=== PATIENT | male | born 1980 ===

== ENCOUNTER 2023-01-08 08:51 | Outpatient (AMB) | payer OTHER, MEDICAID, SELFPAY ==
[2023-01-08 08:54] VITALS: BP 140/90; PULSE 83; O2SAT 97; BMI 34.6
--- NOTE | 2023-01-08 08:54 | A.OFFPC_ITS ---
Vital Signs 01/08/23 08:54 Height 6 ft 1 in Weight 262 lb BMI 34.6 BP 140/90 H Blood Pressure Location Lt brachial Position Sitting Pulse 83 Pulse Source Pulse Oximeter Pulse Oximetry (%) 97 Oxygen Delivery Method Room Air Intake Visit Reasons: New patient-back issues/hip replacements Allergies No Known Allergies [No Known Allergies*] Allergy (Verified 01/08/23 08:54) Tobacco use date assessed: 01/08/23 Dental Screening Dental Screen Date: 01/08/23 Did you have a dental visit in the last 12 months?: Yes Did you have a dental problem in the last 6 months where you did not have access to dental care?: No Was dental information given to patient?: Patient has dentist HPI HPI Comments History of Present Illness Details 42-year-old male new patient presents to day to [facility] care. Past history significant for bilateral hip osteoarthritis, status post hip replacements, lumbar spine arthritis, anxiety, depression and PTSD. Patient reports has had issues with PTSD and night terrors due to recent incarceration. Patient on trazodone 150 mg nightly for night terrors. Patient reports on escitalopram 20 mg daily for anxiety and depression. Not currently followed by Psychiatry. Refills sent on escitalopram and trazodone. Patient reports ongoing lumbar back pain related to lumbar spine arthritis for years. Patient requesting opiate pain medication, patient min aware will send a referral to Pain Management Clinic for further evaluation and treatment of chronic pain. Patient agreeable. Patient also reports bilateral ingrown hairs on neck, appears patient has folliculitis will send cephalexin for this. [facility] Surgical History (Updated 01/08/23 @ 09:12 by KATERINE Nowak) Hx of bilateral hip replacements Family History (Updated 01/08/23 @ 09:15 by KATERINE Nowak) Mother No problems noted. Father No problems noted. Social History (Updated 01/08/23 @ 09:16 by KATERINE Nowak) Household Members: Spouse Housing: House Alcohol intake: never Patient Tobacco Use Status: Current everyday Tobacco user Tobacco use type: Cigarette Cigarette Packs Per Day: 1 Current occupational status: retired and disabled Cognitive needs: No Hearing needs: No Vision needs: No Questionnaire PHQ-9 Over the last 2 weeks, how often have you been bothered by any of the following problems? 1. Little interest or pleasure in doing things: several days 2. Feeling down, depressed, or hopeless: several days 3. Trouble falling or staying asleep, or sleeping too much: several days 4. Feeling tired or having little energy: several days 5. Poor appetite or overeating: several days 6. Feeling bad about yourself - or that you are a failure or have let yourself or your family down: not at all 7. Trouble concentrating on things, such as reading the newspaper or watching television: several days 8. Moving or speaking so slowly that other people could have noticed. Or the opposite - being so fidgety or restless that you have been moving around a lot more than usual: several days 9. Thoughts that you would be better off or of hurting yourself in some way: not at all Total score: 7 Depression Screening Interpretation: Positive Depression Screening Done: Yes 84857 - PHQ-9 Billing: Yes Source: Developed by Drs. Vito Jerome, Mirtha Andrade, Donavan Raines and colleagues, with an educational roverto from [employer]. Thrive Questionnaire Date Thrive assessed: 01/08/23 I am a: Patient What is your living situation today?: I have a steady place to live Within the past 12 months, did the food you bought not last and you didn't have the money to get more?: Never true Within the past 12 months, did you worry whether your food would run out before you got money to buy more?: Never true Do you have trouble paying for medicines?: No Do you have trouble getting transportation to medical appointments?: No Do you have trouble paying your heating and electricity bill?: No Do you have trouble taking care of your child, family member or friend?: No Do you have trouble with day-to-day activities such as bathing, preparing meals, shopping, managing finances, etc.?: No Are you currently unemployed and looking for a job?: No Are you interested in more education?: No Please select the resources that you would like help with: None AUDIT C Alcohol Use Questionnaire (AUDIT-C) 1. How often do you have a drink containing alcohol?: Never Total Score: 0 JOSE JUAN-7 AMB Questionnaire JOSE JUAN-7 Date JOSE JUAN - 7 assessed: 01/08/23 Feeling nervous, anxious, or on edge: 1 = Several days Not being able to stop or control worryin = Several days Worrying too much about different things: 1 = Several days Trouble relaxin = Several days Being so restless that it is hard to sit still: 1 = Several days Becoming easily annoyed or irritable: 1 = Several days Feeling afraid as if something awful might happen: 1 = Several days Total JOSE JUAN-7 score (0-4 normal; 5-9 mild; 10-14 moderate; 15-21 severe): 7 Source: Developed by Drs. Vito Jerome, Mirtha Andrade, Donavan Raines and colleagues, with an educational roverto from [employer]. JOSE JUAN-7 Assessment Billing JOSE JUAN-7 Assessment Tool: JOSE JUAN-7 Assessment 24629 Review of Systems Const Denies chills, Denies fatigue, Denies fever(s) and Denies poor appetite Eyes Denies no additional complaints ENT Reports Normal hearing present Card Denies chest pain, Denies syncope, Denies rapid heart rate and Denies dyspnea Resp Denies cough and Denies dyspnea GI Denies change in stool character, Denies constipation, Denies diarrhea, Denies nausea and Denies vomiting Denies dysuria, Denies urinary frequency and Denies urinary urgency Neuro Reports Normal hearing present, Denies confusion and Denies syncope Psych Denies confusion Endo Denies fatigue Physical exam (Primary Care) Vital Signs: Last Vital Signs Pulse 83 01/08/23 08:54 BP 140/90 H 01/08/23 08:54 Pulse Ox 97 01/08/23 08:54 Oxygen Delivery Method Room Air 01/08/23 08:54 BMI result Body Mass Index 34.6 Tobacco/Smoking Status: Tobacco use Status Tobacco use date assessed 01/08/23 01/08/23 09:01 Patient Tobacco Use Status Current everyday Tobacco 01/08/23 09:16 Tobacco use type Cigarette 01/08/23 09:16 PHQ-9: PHQ-9 Score PHQ-9: Total score 7 01/08/23 09:22 Depression Screening Interpretation: Positive Thrive Assessment: Date of Thrive Assessment Date Thrive assessed 01/08/23 01/08/23 09:01 Const General: No confusion Orientation/consciousness: No confusion HENMT Head: Yes normocephalic and Yes atraumatic Eyes Conjunctivae: conjunctivae normal Chest Chest palpation & inspection: normal inspection of the chest Resp Effort & Inspection: normal respiratory effort Auscultation: clear to auscultation bilaterally, no crackles, no rhonchi and no wheezes Cardio Rate: regular rate Rhythm: regular rhythm Heart sounds: S1 normal heart sound present and S2 normal heart sound present GI Inspection: Yes normal to inspection Skin Other: multiple inflammed pustules to bilateral neck Neuro General: No confusion Cranial nerves: Yes Normal hearing present Extrem General: No edema Assessment and Plan Assessment & Plan (1) Arthritis, lumbar spine: Comment: chronic 2018 Code(s): M47.816 - Spondylosis without myelopathy or radiculopathy, lumbar region Plan: Referral entered to Pain Management for further evaluation and treatment. (2) Folliculitis: Code(s): L73.9 - Follicular disorder, unspecified Plan: Cephalexin sent to patient's pharmacy. Patient advised to discard old razor. (3) Anxiety and depression: Code(s): F41.9 - Anxiety disorder, unspecified; F32.A - Depression, unspecified Plan: Continue on escitalopram 20 mg daily. (4) PTSD (post-traumatic stress disorder): Code(s): F43.10 - Post-traumatic stress disorder, unspecified Plan: Continue on trazodone 150 mg nightly for history of PTSD and night terrors. (5) Smoker: Code(s): F17.200 - Nicotine dependence, unspecified, uncomplicated Plan: Strongly advised to stop. Plan Follow-up in 1 month for physical exam Orders: Orders Complete Blood Count Auto Diff Today Z13.0 - Encounter for screening for diseases of the blood and blood-forming organs and certain disorders involving the immune mechanism Lipid Panel Today Z13.220 - Encounter for screening for lipoid disorders TSH reflex Free T4 Today Z13.29 - Encounter for screening for other suspected endocrine disorder Comprehensive [place]. Panel Fast Today F32.A - Depression, unspecified, F41.9 - Anxiety disorder, unspecified Referrals Pain Management Referral M47.816 - Spondylosis without myelopathy or radiculopathy, lumbar region Medications: New cephalexin 500 mg PO BID 14 caps 0RF L73.9 - Follicular disorder, unspecified escitalopram oxalate 20 mg PO DAILY 30 tabs 3RF F32.A - Depression, unspecified, F41.9 - Anxiety disorder, unspecified trazodone 150 mg PO DAILY 30 tabs 0RF F43.10 - Post-traumatic stress disorder, unspecified Coding Level of Care Code New Pt Level 4 (31849) Diagnoses Arthritis, lumbar spine M47.816 Folliculitis L73.9 Anxiety and depression F41.9; F32.A PTSD (post-traumatic stress disorder) F43.10 Smoker F17.200 Additional Codes JOSE JUAN-7 Assessment Billing - JOSE JUAN-7 Assessment Tool: JOSE JUAN-7 Assessment [id number] ([id number])
== END 2023-01-08 09:32 | disposition home or self-care (01) ==
PROVIDERS: PCP Nurse Practitioner Family; Visit Provider Nurse Practitioner Family
DX: M47.816 Spondylosis without myelopathy or radiculopathy, lumbar region (principal); L73.9 Follicular disorder, unspecified; F41.9 Anxiety disorder, unspecified; F32.A Depression, unspecified; F43.10 Post-traumatic stress disorder, unspecified; F17.210 Nicotine dependence, cigarettes, uncomplicated
CPT/HCPCS: 96127; 99204

== ENCOUNTER 2023-01-23 13:29 | Outpatient (AMB) | payer OTHER, SELFPAY ==
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
[2023-01-23 13:36] VITALS: BP 136/83; PULSE 92; O2SAT 96; BMI 33.6
== END 2023-01-23 14:14 | disposition home or self-care (01) ==
PROVIDERS: PCP Nurse Practitioner Family; Visit Provider Nurse Practitioner Family
DX: M54.51 Vertebrogenic low back pain (principal); M51.36 Other intervertebral disc degeneration, lumbar region; M47.816 Spondylosis without myelopathy or radiculopathy, lumbar region; M54.16 Radiculopathy, lumbar region; M62.838 Other muscle spasm; F11.20 Opioid dependence, uncomplicated
CPT/HCPCS: 99204

== ENCOUNTER 2023-01-23 13:29 | Outpatient (REF) | payer OTHER, SELFPAY ==
--- NOTE | ~2023-01-23 | XR_ITS ---
EXAMINATION: XR LUMBOSACRAL SPINE WITH OBLIQUES CLINICAL INFORMATION: Intervertebral disc degeneration. COMPARISON: MR lumbar spine 01/11/2021. TECHNIQUE: 8 views of the lumbar spine inclusive of flexion, extension and bilateral oblique views. FINDINGS: Bilateral total hip prostheses, incompletely imaged. Facet arthritis in the lower lumbar spine. Moderate loss of disc space height at L3-L4. Mild loss of disc space height at L4-L5 and L2-L3. Schmorl's nodes at L2-L3, L3-L4 and L4-L5. Degenerative changes with sclerosis in the bilateral sacroiliac joints. Alignment preserved on flexion and extension views. XR/XR lumbar spine 6V w bending IMPRESSION: Multilevel loss of disc space height at L2-L3 through L4-L5 levels, most notable at L3-L4. Schmorl's nodes.
== END 2023-01-23 13:30 | disposition home or self-care (01) ==
LOC: HO.XRAY 13:29
PROVIDERS: PCP Nurse Practitioner Family; Visit Provider Nurse Practitioner Family
DX: M51.36 Other intervertebral disc degeneration, lumbar region (principal); M54.51 Vertebrogenic low back pain; M47.816 Spondylosis without myelopathy or radiculopathy, lumbar region
CPT/HCPCS: 72114; 99202

== ENCOUNTER 2023-01-29 10:15 | Outpatient (AMB) | payer OTHER, SELFPAY ==
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
[2023-01-29 11:21] VITALS: BP 200/110; PULSE 74; O2SAT 96
== END 2023-01-29 11:41 | disposition home or self-care (01) ==
PROVIDERS: PCP Nurse Practitioner Family; Visit Provider Nurse Practitioner Family
DX: F11.90 Opioid use, unspecified, uncomplicated (principal)
CPT/HCPCS: 99204; 99214

== ENCOUNTER → 2023-01-29 10:15 | Outpatient (BNVA) | payer OTHER, SELFPAY | PROVIDERS: PCP Nurse Practitioner Family; Visit Provider Nurse Practitioner Family | DX: F11.20 Opioid dependence, uncomplicated (principal) | CPT/HCPCS: 80305; 99202 ==

== ENCOUNTER 2023-02-02 13:19 | Outpatient (AMB) | payer OTHER, SELFPAY ==
--- NOTE | 2023-02-02 13:20 | A.OFFVIS_ITS ---
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 Night sweats --likely related to antidepressants Reporting some constipation, but still pretty regular Requesting increase in dose as he feels dose wearing off. Discussed adding 4mg to midday. Patient agreeable [facility] Surgical History (Updated 01/08/23 @ 09:12 by KATERINE Nowak) Hx of bilateral hip replacements Family History (Updated 01/08/23 @ 09:15 by KATERINE Nowak) Mother No problems noted. Father No problems noted. Social History (Updated 01/23/23 @ 13:37 by Sarah Márquez) Household Members: Spouse Housing: House Alcohol intake: never Patient Tobacco Use Status: Current everyday Tobacco user Tobacco use type: Cigarette Cigarette Packs Per Day: 1 Substance Use Type: Other Current occupational status: retired and disabled Cognitive needs: No Hearing needs: No Vision needs: No Review of Systems Const Reports as per HPI Physical Exam Vital Signs: Last Vital Signs Pulse 87 02/02/23 13:27 BP 134/86 02/02/23 13:27 Pulse Ox 94 02/02/23 13:27 Oxygen Delivery Method Room Air 02/02/23 13:27 Const General: cooperative, healthy appearing and comfortable Orientation/consciousness: patient oriented x3 Limitations: no limitations Neuro General: patient oriented x3 Psych Appearance: well kempt Speech and movement: Clear speech present Affect: normal affect Attitude: cooperative Thought process: Normal thought process present Thought content: Normal thought content present Insight: Good insight present (Psych) Judgement: Good judgement present (Psych) Assessment & Plan Assessment & Plan (1) Opioid use disorder: Code(s): F11.90 - Opioid use, unspecified, uncomplicated Plan: * suboxone dose changed to 8mg BID and 4mg at 2pm * follow up 2 weeks (as he is going on vacation) Medications: New buprenorphine-naloxone 4-1 mg (Suboxone) take daily at 2pm (in addition to 8mg BID) 1 film sublingual Q24H 14 ea 0RF Refilled buprenorphine-naloxone 8-2 mg 1 film buccal BID 28 ea 0RF Coding Level of Care Code Est Pt Level 3 (04713) Diagnoses Opioid use disorder F11.90
[2023-02-02 13:27] VITALS: BP 134/86; PULSE 87; O2SAT 94
== END 2023-02-02 14:08 | disposition home or self-care (01) ==
PROVIDERS: PCP Nurse Practitioner Family; Visit Provider Nurse Practitioner Family
DX: F11.90 Opioid use, unspecified, uncomplicated (principal)
CPT/HCPCS: 99213

== ENCOUNTER → 2023-02-02 13:19 | Outpatient (BNVA) | payer OTHER, SELFPAY | PROVIDERS: PCP Nurse Practitioner Family; Visit Provider Nurse Practitioner Family | DX: F11.20 Opioid dependence, uncomplicated (principal) | CPT/HCPCS: 99212 ==

== ENCOUNTER 2023-02-16 13:58 | Outpatient (AMB) | payer OTHER, SELFPAY ==
--- NOTE | 2023-02-16 13:59 | A.OFFVIS_ITS ---
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 Father No problems noted. Social History (Updated 01/23/23 @ 13:37 by Sarah Márquez) Household Members: Spouse Housing: House Alcohol intake: never Patient Tobacco Use Status: Current everyday Tobacco user Tobacco use type: Cigarette Cigarette Packs Per Day: 1 Substance Use Type: Other Current occupational status: retired and disabled Cognitive needs: No Hearing needs: No Vision needs: No Review of Systems Const Reports as per HPI Physical Exam Vital Signs: Last Vital Signs Pulse 98 02/16/23 14:04 BP 128/76 02/16/23 14:04 Pulse Ox 96 02/16/23 14:04 Oxygen Delivery Method Room Air 02/16/23 14:04 Const General: cooperative and healthy appearing Resp Effort & Inspection: normal respiratory effort Skin General skin exam: no rashes or lesions noted Psych Appearance: grossly normal Mental Status: mental status grossly normal Speech and movement: Normal speech and movement present Affect: normal affect Thought content: Normal thought content present Insight: Good insight present (Psych) Judgement: Good judgement present (Psych) Assessment & Plan Assessment & Plan (1) Opioid dependence: Code(s): F11.20 - Opioid dependence, uncomplicated Plan: Continue suboxone at current dose Follow up 1 week Medications: Refilled buprenorphine-naloxone 8-2 mg 1 film buccal BID 14 ea 0RF buprenorphine-naloxone 4-1 mg (Suboxone) take daily at 2pm (in addition to 8mg BID) 1 film sublingual Q24H 7 ea 0RF Coding Level of Care Code Est Pt Level 3 (87691) Diagnoses Opioid dependence F11.20
[2023-02-16 14:04] VITALS: BP 128/76; PULSE 98; O2SAT 96
== END 2023-02-16 14:19 | disposition home or self-care (01) ==
PROVIDERS: PCP Nurse Practitioner Family; Visit Provider Nurse Practitioner Family
DX: F11.20 Opioid dependence, uncomplicated (principal)
CPT/HCPCS: 99213

== ENCOUNTER → 2023-02-16 13:58 | Outpatient (BNVA) | payer OTHER, SELFPAY | PROVIDERS: PCP Nurse Practitioner Family; Visit Provider Nurse Practitioner Family | DX: F11.20 Opioid dependence, uncomplicated (principal) | CPT/HCPCS: 99212 ==

== ENCOUNTER 2023-02-24 09:49 | Outpatient (AMB) | payer OTHER, SELFPAY ==
[2023-02-24 09:54] VITALS: BP 124/78; PULSE 84; O2SAT 95
--- NOTE | 2023-02-24 09:54 | A.OFFVIS_ITS ---
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 No concers for side effects at this time [facility] Surgical History (Updated 01/08/23 @ 09:12 by KATERINE Nowak) Hx of bilateral hip replacements Family History (Updated 01/08/23 @ 09:15 by KATERINE Nowak) Mother No problems noted. Father No problems noted. Social History (Updated 01/23/23 @ 13:37 by Sarah Márquez) Household Members: Spouse Housing: House Alcohol intake: never Patient Tobacco Use Status: Current everyday Tobacco user Tobacco use type: Cigarette Cigarette Packs Per Day: 1 Substance Use Type: Other Current occupational status: retired and disabled Cognitive needs: No Hearing needs: No Vision needs: No Review of Systems Const Reports as per HPI Physical Exam Vital Signs: Last Vital Signs Pulse 84 02/24/23 09:54 BP 124/78 02/24/23 09:54 Pulse Ox 95 02/24/23 09:54 Oxygen Delivery Method Room Air 02/24/23 09:54 Const General: cooperative and no acute distress Resp Effort & Inspection: normal respiratory effort Psych Appearance: grossly normal Mental Status: mental status grossly normal Speech and movement: Normal speech and movement present Affect: normal affect Attitude: cooperative Thought process: Normal thought process present Assessment & Plan Assessment & Plan (1) Opioid dependence: Code(s): F11.20 - Opioid dependence, uncomplicated Qualifiers: Substance use status: uncomplicated Qualified Code(s): F11.20 - Opioid dependence, uncomplicated Plan: Continue suboxone at current dose Follow up 2 weeks Instructed to call [facility] with questions/concerns or if he needs to be seen sooner Medications: Refilled buprenorphine-naloxone 4-1 mg (Suboxone) take daily at 2pm (in addition to 8mg BID) 1 film sublingual Q24H 14 ea 0RF buprenorphine-naloxone 8-2 mg 1 film buccal BID 28 ea 0RF Coding Level of Care Code Est Pt Level 3 (83020) Diagnoses Uncomplicated opioid dependence F11.20 Substance use status: uncomplicated
== END 2023-02-24 10:17 | disposition home or self-care (01) ==
PROVIDERS: PCP Nurse Practitioner Family; Visit Provider Nurse Practitioner Family
DX: F11.20 Opioid dependence, uncomplicated (principal)
CPT/HCPCS: 99213

== ENCOUNTER → 2023-02-24 09:49 | Outpatient (BNVA) | payer OTHER, SELFPAY | PROVIDERS: PCP Nurse Practitioner Family; Visit Provider Nurse Practitioner Family | DX: F11.20 Opioid dependence, uncomplicated (principal) | CPT/HCPCS: 99212 ==

== ENCOUNTER 2023-03-24 10:44 | Outpatient (AMB) | payer OTHER, SELFPAY ==
--- NOTE | 2023-03-24 10:52 | MHC.AM.SUB ---
Intake Intake Visit Reasons: mat visit Allergies No Known Allergies [No Known Allergies*] Allergy (Verified 02/24/23 10:07) HPI mat visit HPI Details Patient presents for [facility]I treatment and follow up Reports he has been well, missed his last appointment due to covid exposure. Reports his holidays have gone well Denies cravings, states the suboxone has been really helpful Asked about night sweats, admitted he does not always take his last dose of the day, reviewed with patient the importance of scheduled doses to prevent withdrawal symptoms. Reports he has been taking Miralax every few days for constipation with good effect. [facility] Surgical History (Updated 01/08/23 @ 09:12 by KATERINE Nowak) Hx of bilateral hip replacements Family History (Updated 01/08/23 @ 09:15 by KATERINE Nowak) Mother No problems noted. Father No problems noted. Social History (Updated 01/23/23 @ 13:37 by Sarah Márquez) Household Members: Spouse Housing: House Alcohol intake: never Patient Tobacco Use Status: Current everyday Tobacco user Tobacco use type: Cigarette Cigarette Packs Per Day: 1 Substance Use Type: Other Current occupational status: retired and disabled Cognitive needs: No Hearing needs: No Vision needs: No Review of Systems Const Reports as per HPI Physical Exam Const General: cooperative and no acute distress Resp Effort & Inspection: normal respiratory effort Skin General skin exam: no rashes or lesions noted Psych Appearance: grossly normal Mental Status: mental status grossly normal Speech and movement: Normal speech and movement present Assessment & Plan Assessment & Plan (1) Opioid use disorder: Code(s): F11.90 - Opioid use, unspecified, uncomplicated Plan: -Continue suboxone at current dose -Educated to take suboxone at regular intervals -Follow up 4 weeks -Mass pat reviewed Medications: Refilled buprenorphine-naloxone 8-2 mg 1 film buccal BID 56 ea 0RF buprenorphine-naloxone 4-1 mg (Suboxone) take daily at 2pm (in addition to 8mg BID) 1 film sublingual Q24H 28 ea 0RF Coding Level of Care Code Est Pt Level 3 (84992) Diagnoses Opioid use disorder F11.90
== END 2023-03-24 11:10 | disposition home or self-care (01) ==
PROVIDERS: PCP Nurse Practitioner Family; Visit Provider Nurse Practitioner Family
DX: F11.90 Opioid use, unspecified, uncomplicated (principal)
CPT/HCPCS: 99213

== ENCOUNTER → 2023-03-24 10:44 | Outpatient (BNVA) | payer OTHER, SELFPAY | PROVIDERS: PCP Nurse Practitioner Family; Visit Provider Nurse Practitioner Family | DX: F11.20 Opioid dependence, uncomplicated (principal) | CPT/HCPCS: 99212 ==

== ENCOUNTER 2023-04-15 18:21 | Outpatient (REF) | payer OTHER, SELFPAY | END 2023-04-15 18:22 | disposition home or self-care (01) | LOC: HO.MRI 18:21 | PROVIDERS: PCP Nurse Practitioner Family; Visit Provider Nurse Practitioner Family | DX: Z13.89 Encounter for screening for other disorder (principal) ==

== ENCOUNTER 2023-04-27 08:33 | Outpatient (AMB) | payer OTHER, SELFPAY ==
[2023-04-27 08:40] VITALS: BP 138/76; PULSE 75; O2SAT 97; BMI 36.4
--- NOTE | 2023-04-27 08:40 | MHC.PC.OV ---
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: No Allergies No Known Allergies [No Known Allergies*] Allergy (Verified 04/27/23 08:55) Medication List - Last Reconciled 04/27/23 by Heather Plata, KATERINE- buprenorphine-naloxone 4-1 mg (Suboxone) 1 film sublingual Q24H buprenorphine-naloxone 8-2 mg 1 film buccal BID escitalopram oxalate 20 mg PO DAILY gabapentin 300 mg PO TID 30 days tizanidine 4 mg PO Q8H PRN trazodone 150 mg PO DAILY Tobacco use date assessed: 04/27/23 Dental Screening Dental Screen Date: 04/27/23 Did you have a dental visit in the last 12 months?: Yes Did you have a dental problem in the last 6 months where you did not have access to dental care?: No Was dental information given to patient?: Patient has dentist HPI HPI Comments History of Present Illness Details 42 y/o M disabled since age 36, current smoker, MDD, Polysubtance Use now on Suboxone, on probation s/p incarceration, lumbar spondylosis, pilonidial cyst s/p excision s/p L CTS release, bilat hip replacements d/t avascular necrosis Family hx: Health Maintenance: PSA Immunizations Specialists: [facility] [place] [facility] [place] [facility] Here today w/ c/o lump or boil like area on the back of neck. Has been there for a long time, like a year. Admits getting lesions like this on other parts of his body. Has never been active w/ Derm. Has been applying peroxide and bacitracin to the area w/o relief. PFSH Surgical History (Updated 01/08/23 @ 09:12 by KATERINE Nowak) Hx of bilateral hip replacements Family History (Updated 01/08/23 @ 09:15 by KATERINE Nowak) Mother No problems noted. Father No problems noted. Social History (Updated 01/23/23 @ 13:37 by Sarah Márquez) Household Members: Spouse Housing: House Alcohol intake: never Patient Tobacco Use Status: Current everyday Tobacco user Tobacco use type: Cigarette Cigarette Packs Per Day: 1 Substance Use Type: Other service: No Current occupational status: retired and disabled Cognitive needs: No Hearing needs: No Vision needs: No Questionnaire PHQ-9 Over the last 2 weeks, how often have you been bothered by any of the following problems? 1. Little interest or pleasure in doing things: not at all 2. Feeling down, depressed, or hopeless: not at all 3. Trouble falling or staying asleep, or sleeping too much: not at all 4. Feeling tired or having little energy: not at all 5. Poor appetite or overeating: not at all 6. Feeling bad about yourself - or that you are a failure or have let yourself or your family down: not at all 7. Trouble concentrating on things, such as reading the newspaper or watching television: not at all 8. Moving or speaking so slowly that other people could have noticed. Or the opposite - being so fidgety or restless that you have been moving around a lot more than usual: not at all 9. Thoughts that you would be better off or of hurting yourself in some way: not at all Total score: 0 Depression Screening Interpretation: Negative Depression Screening Done: Yes 92295 - PHQ-9 Billing: Yes Source: Developed by Drs. Vito Jerome, Mirtha Andrade, Donavan Raines and colleagues, with an educational roverto from [employer]. Thrive Questionnaire Date Thrive assessed: 04/27/23 I am a: Patient What is your living situation today?: I have a steady place to live Within the past 12 months, did the food you bought not last and you didn't have the money to get more?: Never true Within the past 12 months, did you worry whether your food would run out before you got money to buy more?: Never true Do you have trouble paying for medicines?: No Do you have trouble getting transportation to medical appointments?: No Do you have trouble paying your heating and electricity bill?: No Do you have trouble taking care of your child, family member or friend?: No Do you have trouble with day-to-day activities such as bathing, preparing meals, shopping, managing finances, etc.?: No Are you currently unemployed and looking for a job?: No Are you interested in more education?: No Please select the resources that you would like help with: None THRIVE Score: 0 AUDIT C Alcohol Use Questionnaire (AUDIT-C) 1. How often do you have a drink containing alcohol?: Never 2. How many drinks containing alcohol do you have on a typical day when you are drinking?: 1 or 2 (o) 3. How often do you have six or more drinks on one occasion?: Never Total Score: 0 Score Reviewed/Action Taken: No JOSE JUAN-7 AMB Questionnaire JOSE JUAN-7 Date JOSE JUAN - 7 assessed: 04/27/23 Feeling nervous, anxious, or on edge: 1 = Several days Not being able to stop or control worryin = Several days Worrying too much about different things: 1 = Several days Trouble relaxin = Several days Being so restless that it is hard to sit still: 1 = Several days Becoming easily annoyed or irritable: 1 = Several days Feeling afraid as if something awful might happen: 1 = Several days Total JOSE JUAN-7 score (0-4 normal; 5-9 mild; 10-14 moderate; 15-21 severe): 7 Source: Developed by Drs. Vito Jerome, Mirtha Andrade, Donavan Raines and colleagues, with an educational roverto from [employer]. JOSE JUAN-7 Assessment Billing JOSE JUAN-7 Assessment Tool: JOSE JUAN-7 Assessment 99825 Review of Systems Const All systems reviewed & are unremarkable except as noted in HPI and below Physical exam (Primary Care) Vital Signs: Last Vital Signs Pulse 75 04/27/23 08:40 BP 138/76 04/27/23 08:40 Pulse Ox 97 04/27/23 08:40 Oxygen Delivery Method Room Air 04/27/23 08:40 BMI result Body Mass Index 36.4 Tobacco/Smoking Status: Tobacco use Status Tobacco use date assessed 04/27/23 04/27/23 08:48 Patient Tobacco Use Status Current everyday Tobacco 04/27/23 08:48 Tobacco use type Cigarette 04/27/23 08:48 PHQ-9: PHQ-9 Score PHQ-9: Total score 0 04/27/23 08:53 Depression Screening Interpretation: Negative Thrive Assessment: Date of Thrive Assessment Date Thrive assessed 04/27/23 04/27/23 08:48 Const Other: Awake alert oriented and cooperative At the nape of the neck midline are 2 hyperkeratotic pink raised skin lesions with secondary excoriations and scabbing without signs of infection. He reports a boil type area on the inside of his right thigh that was not shown to me today. He reports that it is improving Assessment and Plan Assessment & Plan (1) Boil of head or scalp: Code(s): L02.821 - Furuncle of head [any part, except face] (2) Boil, thigh: Code(s): L02.429 - Furuncle of limb, unspecified Plan The area does not look infected today. Advised to keep clean and dry. Avoid scratching or applying friction to the area. Okay to use triple antibiotic ointment. I recommend that he follow up with Dermatology for this chronic issue. Educated to seek additional care if this area should become infected. In regards to his physical exam, he reports that he had a wellness exam less than a year ago with labs in [place]. I do not have these notes. He can follow-up here when he is due for a physical This note is constructed using voice recognition software. 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 Total time spent caring for the patient today was 30 minutes. This includes time spent before the visit reviewing the chart, time spent during the visit, and time spent after the visit on documentation Orders: Referrals Dermatology Referral L02.429 - Furuncle of limb, unspecified, L02.821 - Furuncle of head [any part, except face] Coding Level of Care Code Est Pt Level 4 (39535) Diagnoses Boil of head or scalp L02.821 Boil, thigh L02.429 Additional Codes JOSE JUAN-7 Assessment Billing - JOSE JUAN-7 Assessment Tool: JOSE JUAN-7 Assessment 66155 ([id number])
== END 2023-04-27 09:05 | disposition home or self-care (01) ==
PROVIDERS: PCP Nurse Practitioner Family; Visit Provider Nurse Practitioner Family
DX: L02.821 Furuncle of head [any part, except face] (principal); L02.429 Furuncle of limb, unspecified
CPT/HCPCS: 99214

== ENCOUNTER 2023-05-25 15:05 | Outpatient (AMB) | payer OTHER, SELFPAY ==
[2023-05-25 15:09] VITALS: BP 140/70; PULSE 80; RESP 19; O2SAT 98
--- NOTE | 2023-05-25 15:09 | MHC.AM.SUB ---
Intake Vital Signs 05/25/23 15:09 BP 140/70 H Blood Pressure Location Rt radial Position Sitting Respiration 19 Pulse 80 Pulse Oximetry (%) 98 Oxygen Delivery Method Room Air Intake Visit Reasons: mat visit Allergies No Known Allergies [No Known Allergies*] Allergy (Verified 04/27/23 08:55) HPI mat visit HPI Details Patient presents for MAT appointment Reports he has been experiencing poor sleep, states he snores like a freight train and wakes frequently gasping for air He has an appointment with his PCP tomorrow to address this. He reports his back pain has been worse lately as well and was wondering if suboxone loses its effectiveness No concerns for recovery today PFSH Surgical History (Updated 01/08/23 @ 09:12 by KATERINE Nowak) Hx of bilateral hip replacements Family History (Updated 01/08/23 @ 09:15 by KATERINE Nowak) Mother No problems noted. Father No problems noted. Social History (Updated 01/23/23 @ 13:37 by Sarah Márquez) Household Members: Spouse Housing: House Alcohol intake: never Patient Tobacco Use Status: Current everyday Tobacco user Tobacco use type: Cigarette Cigarette Packs Per Day: 1 Substance Use Type: Other service: No Current occupational status: retired and disabled Cognitive needs: No Hearing needs: No Vision needs: No Review of Systems Const Reports as per HPI and Reports difficulty sleeping Physical Exam Vital Signs: Last Vital Signs Pulse 80 05/25/23 15:09 Resp 19 05/25/23 15:09 BP 140/70 H 05/25/23 15:09 Pulse Ox 98 05/25/23 15:09 Oxygen Delivery Method Room Air 05/25/23 15:09 Const General: cooperative and no acute distress Resp Effort & Inspection: normal respiratory effort Skin General skin exam: no rashes or lesions noted Psych Appearance: grossly normal Mental Status: mental status grossly normal Speech and movement: Normal speech and movement present Affect: normal affect Attitude: cooperative Assessment & Plan Assessment & Plan (1) Opioid dependence: Code(s): F11.20 - Opioid dependence, uncomplicated Qualifiers: Substance use status: uncomplicated Qualified Code(s): F11.20 - Opioid dependence, uncomplicated Plan: -Continue suboxone same dose, encouraged him to split his dose to take more often throughout the day -Mass pat reviewed -Follow up 4 weeks Medications: Refilled buprenorphine-naloxone 8-2 mg 1 film buccal BID 56 ea 0RF buprenorphine-naloxone 4-1 mg (Suboxone) take daily at 2pm (in addition to 8mg BID) 1 film sublingual Q24H 28 ea 0RF Coding Level of Care Code Est Pt Level 3 (66351) Diagnoses Uncomplicated opioid dependence F11.20 Substance use status: uncomplicated
== END 2023-05-25 15:28 | disposition home or self-care (01) ==
PROVIDERS: PCP Nurse Practitioner Family; Visit Provider Nurse Practitioner Family
DX: F11.20 Opioid dependence, uncomplicated (principal)
CPT/HCPCS: 99213

== ENCOUNTER → 2023-05-25 15:05 | Outpatient (BNVA) | payer OTHER, SELFPAY | PROVIDERS: PCP Nurse Practitioner Family; Visit Provider Nurse Practitioner Family | DX: F11.20 Opioid dependence, uncomplicated (principal) | CPT/HCPCS: 99212 ==

== ENCOUNTER 2023-05-26 09:14 | Outpatient (AMB) | payer OTHER, MEDICAID, SELFPAY ==
--- NOTE | 2023-05-26 09:17 | MHC.PC.OV ---
Vital Signs 05/26/23 09:22 Height 6 ft 1 in Weight 256 lb BMI 33.8 BP 157/90 H Blood Pressure Location Rt brachial Position Sitting Respiration 14 Pulse 82 Pulse Source Pulse Oximeter Temp 97.2 F Temp Source Temporal Artery Scan Pulse Oximetry (%) 98 Oxygen Delivery Method Room Air Intake Visit Reasons: Swelling all over body Intake Note: Patient is here with concerns for: MRI of Lower lumbar from [facility] after bilateral hip replacement Testosterone levels Sleep Apnea- snoring, stops breathings, coughing, wakes up Diabetes- night sweats, nadeem VILLASENOR informed patient he was close to becoming diabetic Bottom of L foot- Surgery done with [facility] podiatry on R foot for the same thing done on the L foot Ingrown hair/boils on base of head, R thumb, and thigh Concrete Pointer Required: No Accompanied by: Self / Same As Patient Allergies No Known Allergies [No Known Allergies*] Allergy (Verified 05/26/23 09:31) Medication List - Last Reconciled 05/26/23 by Heather Plata, [facility]- buprenorphine-naloxone 4-1 mg (Suboxone) 1 film sublingual Q24H buprenorphine-naloxone 8-2 mg 1 film buccal BID escitalopram oxalate 20 mg PO DAILY trazodone 150 mg PO DAILY Tobacco use date assessed: 04/27/23 HPI HPI Comments History of Present Illness Details 42 y/o M disabled since age 36, current smoker, MDD, JOSE JUAN, Polysubtance Use now on Suboxone, on probation s/p incarceration, lumbar spondylosis, AMITA s/p L CTS release, bilat hip replacements d/t avascular necrosis Family hx: Health Maintenance: PSA ordered today Immunizations Specialists: [facility] [place] [facility] [place] [facility] Here today with several complaints Made aware we cannot address all of these today Wants to start w/ poor sleep and night time sweating. States he is not and has never been on substances. Is in MAT for suboxone because he lied about having hip pain and needed pain mgmt. Be that as it may, he is active in MAT with weekly counseling. Interested in referral to general counseling for MDD and JOSE JUAN. Cont to be worried about skin lesion on back of scalp. He was already referred to Derm but did not follow up on this. Has sleep apnea per his reports, no recent sleep study. Not on CPAP. Willing to have home sleep study. Ordered today. [facility] Medical History No pertinent past medical history Surgical History Hx of bilateral hip replacements Family History Mother No problems noted. Father No problems noted. Social History Household Members: Spouse Housing: House 75 years or older and lives alone: No Alcohol intake: never Patient Tobacco Use Status: Current everyday Tobacco user Tobacco use type: Cigarette Cigarette Packs Per Day: 1 Cigarettes Per Day: 20 Years Smoked: 30 e-Cigarette/Vaping Use: Never Used Substance Use Type: Marijuana and Other service: No Current occupational status: retired and disabled Sexual orientation: Straight/Heterosexual Gender identity: Male Cognitive needs: No Hearing needs: No Vision needs: No Questionnaire PHQ-9 Over the last 2 weeks, how often have you been bothered by any of the following problems? 1. Little interest or pleasure in doing things: not at all 2. Feeling down, depressed, or hopeless: not at all 3. Trouble falling or staying asleep, or sleeping too much: not at all 4. Feeling tired or having little energy: not at all 5. Poor appetite or overeating: not at all 6. Feeling bad about yourself - or that you are a failure or have let yourself or your family down: not at all 7. Trouble concentrating on things, such as reading the newspaper or watching television: not at all 8. Moving or speaking so slowly that other people could have noticed. Or the opposite - being so fidgety or restless that you have been moving around a lot more than usual: not at all 9. Thoughts that you would be better off or of hurting yourself in some way: not at all Total score: 0 Depression Screening Interpretation: Negative Depression Screening Done: Yes 45952 - PHQ-9 Billing: Yes Source: Developed by Drs. Vito Jerome, Mirtha B.Donavan Rodriguez and colleagues, with an educational roverto from [employer]. Thrive Questionnaire Date Thrive assessed: 04/27/23 I am a: Patient What is your living situation today?: I have a steady place to live Within the past 12 months, did the food you bought not last and you didn't have the money to get more?: Never true Within the past 12 months, did you worry whether your food would run out before you got money to buy more?: Never true Do you have trouble paying for medicines?: No Do you have trouble getting transportation to medical appointments?: No Do you have trouble paying your heating and electricity bill?: No Do you have trouble taking care of your child, family member or friend?: No Do you have trouble with day-to-day activities such as bathing, preparing meals, shopping, managing finances, etc.?: No Are you currently unemployed and looking for a job?: No Are you interested in more education?: No Please select the resources that you would like help with: None Currently or been in a relationship where the following occur: no concerns reported THRIVE Score: 0 AUDIT C Alcohol Use Questionnaire (AUDIT-C) 1. How often do you have a drink containing alcohol?: Never 3. How often do you have six or more drinks on one occasion?: Never Total Score: 0 Score Reviewed/Action Taken: Yes JOSE JUAN-7 AMB Questionnaire JOSE JUAN-7 Date JOSE JUAN - 7 assessed: 04/27/23 Feeling nervous, anxious, or on edge: 0 = Not at all Not being able to stop or control worryin = Not at all Worrying too much about different things: 0 = Not at all Trouble relaxin = Not at all Being so restless that it is hard to sit still: 0 = Not at all Becoming easily annoyed or irritable: 0 = Not at all Feeling afraid as if something awful might happen: 0 = Not at all Total JOSE JUAN-7 score (0-4 normal; 5-9 mild; 10-14 moderate; 15-21 severe): 0 Source: Developed by Drs. Vito Jerome, Donavan Kinsey and colleagues, with an educational roverto from [employer]. JOSE JUAN-7 Assessment Billing JOSE JUAN-7 Assessment Tool: JOSE JUAN-7 Assessment 11977 Review of Systems Const All systems reviewed & are unremarkable except as noted in HPI and below Physical exam (Primary Care) Vital Signs: Last Vital Signs Temp 97.2 F 05/26/23 09:22 Pulse 82 05/26/23 09:22 Resp 14 05/26/23 09:22 BP 157/90 H 05/26/23 09:22 Pulse Ox 98 05/26/23 09:22 Oxygen Delivery Method Room Air 05/26/23 09:22 BMI result Body Mass Index 33.8 BMI Assessment/Plan discussion: High BMI High, discussed plan: lifestyle Tobacco/Smoking Status: Tobacco use Status Tobacco use date assessed 04/27/23 05/26/23 09:18 Patient Tobacco Use Status Current everyday Tobacco 05/26/23 09:36 Tobacco use type Cigarette 05/26/23 09:36 e-Cigarette/Vaping Use Never Used 05/26/23 09:36 Are you ready to quit: No Tobacco cessation counseling provided: Yes Items discussed: Other Relapse Prevention: discussed the importance of a supportive environment, discussed extending NRT, discussed negative mood or depression after quitting, weight gain after smoking is common and discussed dietary, exercise and/or lifestyle changes Number of minutes spent counselin CPT code: 30348 - 4-10 Minutes Depression Screening Interpretation: Negative Thrive Assessment: Date of Thrive Assessment Date Thrive assessed 04/27/23 05/26/23 09:18 Currently or been in a relationship where the following occur: no concerns reported Advance Care Planning discussion: Declined forms Date of discussion: 05/26/23 Forms completed: None Time spent: 1-15 minutes, not on file Actual minutes spent: 2 Did not discuss due to Cultural/Spiritual beliefs: Yes Const Other: Alert, oriented Mood expansive hard to redirect, asking the same questions over and over pupils pinpoint MMM RRR, BP recheck 160/90 LS with ins/exp wheezes throughout skin lesion nape of neck in hairline same as last exam Assessment and Plan Assessment & Plan (1) JOSE JUAN (generalized anxiety disorder): Comment: Currently on escitalopram and trazodone managed by [facility]. Nurse navigation referral placed today for general counseling. Code(s): F41.1 - Generalized anxiety disorder (2) MDD (major depressive disorder), recurrent episode: Comment: Currently managed on citalopram and trazodone at [facility]. Nurse navigation referral placed to get him into a a general counselor Code(s): F33.9 - Major depressive disorder, recurrent, unspecified Qualifiers: Major depression episode severity: severe Psychotic features: without psychotic features Qualified Code(s): F33.2 - Major depressive disorder, recurrent severe without psychotic features (3) Opioid use disorder: Comment: Currently managed by MAT clinic on Suboxone. He denies any polysubstance abuse history however his records do not corroborate this Code(s): F11.90 - Opioid use, unspecified, uncomplicated (4) Tobacco dependence: Comment: Current everyday smoker. Cessation encouraged Code(s): F17.200 - Nicotine dependence, unspecified, uncomplicated (5) History of incarceration: Comment: Screen for tuberculosis Code(s): Z78.9 - Other specified health status (6) Folliculitis: Comment: Has already been referred to Dermatology. Advised that he needs to follow up with the referral department about this appointment and follow up with derm. Code(s): L73.9 - Follicular disorder, unspecified (7) AMITA (obstructive sleep apnea): Comment: Subjective report of sleep apnea. No recent sleep study. Home sleep study ordered today Code(s): G47.33 - Obstructive sleep apnea (adult) (pediatric) (8) Hypertension: Comment: Blood pressure elevated upon presentation and again on repeat. We will bring him back next week to recheck. Not currently on any agents. Code(s): I10 - Essential (primary) hypertension Qualifiers: Hypertension type: primary hypertension Qualified Code(s): I10 - Essential (primary) hypertension Plan This note is constructed using voice recognition software. While every effort has been made to ensure accuracy in drug discovery informatics specialist, still errors may have been included Sometimes, these errors may affect the content or meaning of the given sentence . Total time spent caring for the patient today was 45 minutes. This includes time spent before the visit reviewing the chart, time spent during the visit, and time spent after the visit on documentation Return to office in 1 week to follow up on lab results and develop a plan of care and recheck his blood pressure Orders: Orders Microalbumin, Random (w Creat) Today F33.9 - Major depressive disorder, recurrent, unspecified, F41.1 - Generalized anxiety disorder, G47.33 - Obstructive sleep apnea (adult) (pediatric) PSA, Ultra Sensitive Today F33.9 - Major depressive disorder, recurrent, unspecified, F41.1 - Generalized anxiety disorder, G47.33 - Obstructive sleep apnea (adult) (pediatric) T Spot TB Today F33.9 - Major depressive disorder, recurrent, unspecified, F41.1 - Generalized anxiety disorder, G47.33 - Obstructive sleep apnea (adult) (pediatric) Hemoglobin A1c Today F33.9 - Major depressive disorder, recurrent, unspecified, F41.1 - Generalized anxiety disorder, G47.33 - Obstructive sleep apnea (adult) (pediatric) RT home sleep study Today F33.9 - Major depressive disorder, recurrent, unspecified, F41.1 - Generalized anxiety disorder, G47.33 - Obstructive sleep apnea (adult) (pediatric) Comprehensive [place]. Panel Fast Today F33.9 - Major depressive disorder, recurrent, unspecified, F41.1 - Generalized anxiety disorder, G47.33 - Obstructive sleep apnea (adult) (pediatric) TSH reflex Free T4 Today F33.9 - Major depressive disorder, recurrent, unspecified, F41.1 - Generalized anxiety disorder, G47.33 - Obstructive sleep apnea (adult) (pediatric) Lipid Panel Today F33.9 - Major depressive disorder, recurrent, unspecified, F41.1 - Generalized anxiety disorder, G47.33 - Obstructive sleep apnea (adult) (pediatric) UA w Microscopic Today F33.9 - Major depressive disorder, recurrent, unspecified, F41.1 - Generalized anxiety disorder, G47.33 - Obstructive sleep apnea (adult) (pediatric) Vitamin B12 and Folate Today F33.9 - Major depressive disorder, recurrent, unspecified, F41.1 - Generalized anxiety disorder, G47.33 - Obstructive sleep apnea (adult) (pediatric) Referrals Nurse Navigator Referral F33.9 - Major depressive disorder, recurrent, unspecified, F41.1 - Generalized anxiety disorder Patient Instructions: Smoking Cessation How to Quit There are a lot of ways to quit smoking and many resources to help you. Family members, friends, and co-workers may be supportive or encouraging, but to be successful the desire and commitment to quit must be your own. Most people who have been able to successfully quit smoking made at least one unsuccessful attempt in the past. Try not to view past attempts to quit as failures, but rather as learning experiences. Stopping smoking or using smokeless tobacco is difficult, but anyone can do it. Know the symptoms to expect when you stop. Common symptoms include: ? An intense craving for nicotine ? Anxiety, tension, restlessness, frustration, or impatience ? Difficulty concentrating ? Drowsiness or trouble sleeping, as well as bad dreams and nightmares ? Drowsiness and trouble sleeping ? Headaches ? Increased appetite and weight gain ? Irritability or depression How severe your symptoms are depends on how long you smoked and how many cigarettes you smoked each day. Feel ready to quit? ? First and foremost, set a quit date and quit completely on that day. Before your quit date, you may begin reducing your cigarette use. But remember, there is no safe level of cigarette smoking. ? List the reasons why you want to quit. Include both short- and long-term benefits. ? Identify the times you are most likely to smoke. For example, do you tend to smoke when feeling stressed or down? When out at night with friends? While drinking coffee or alcohol? When bored? While driving? Right after a meal or sex? During a work break? While watching TV or playing cards? When you are with other smokers? ? Let all of your friends, family, and co-workers know of your plan to stop smoking and your quit date. Just being aware that they know what you're going through can be helpful, especially when you are grumpy. ? Get rid of all your cigarettes just before the quit date, and clean out anything that smells like smoke, such as clothes and furniture. Make a plan about what you will do instead of smoking at those times when you are most likely to smoke. ? Be as specific as possible. For example, drink tea instead of coffee -- tea may not trigger the desire for a cigarette. Or, take a walk when you feel stressed. ? Remove ashtrays and cigarettes from the car. Place pretzels or hard candies there instead. Pretend-smoke with a straw. ? Find activities that focus your hands and mind but are not taxing or fattening. Computer games, solitaire, knitting, sewing, and crossword puzzles may help. ? If you normally smoke after eating, find other ways to end a meal. Play a tape or CD, eat a piece of fruit, get up and make a phone call, or take a walk (a good distraction that also suárez calories). Make other changes in your lifestyle. ? Change your daily schedule and habits. Eat at different times or eat several small meals instead of three large ones. Sit in a different chair or even a different room. ? Satisfy your oral habits by eating celery or other low-calorie snack, chewing sugarless gum, or sucking on a cinnamon stick. ? Go to public places and restaurants where smoking is prohibited or restricted. ? Eat regular meals and don't eat too much candy or sweet things. ? Get more exercise. Take walks or ride a bike. Exercise helps relieve the urge to smoke. Set short-term quitting goals and reward yourself when you meet them. ? Every day, put the money you normally spend on cigarettes in a jar. Then buy something pleasurable after a period of time. ? Try not to think about all the days ahead you will need to avoid smoking. Take it one day at a time. ? Even one puff or one cigarette will make your desire for more cigarettes even stronger. However, it is normal to make mistakes. So even if you have one cigarette, you don't need to take the next one. Other tips to help you quit smoking and stick to it: ? Enroll in a smoking cessation program (hospitals, health departments, community centers, and work sites often offer programs). Learn about self-hypnosis or other techniques. ? Ask your health care provider about prescription medications that are safe and appropriate for you. ? Find out about nicotine patches, gum, and sprays. The [employer]'s web site -- www.cancer.org -- is an excellent resource for smokers who are trying to quit, and the [employer] [place] [employer] can help some smokers kick the habit. Above all, don't get discouraged if you aren't able to quit smoking the first time. Nicotine addiction is a hard habit to break. Try something different next time. Develop new strategies, and try again. Many people take several attempts to finally kick the habit. Coding Level of Care Code Est Pt Level 5 (46929) Diagnoses JOSE JUAN (generalized anxiety disorder) F41.1 Severe episode of recurrent major depressive disorder, without psychotic features F33.2 Major depression episode severity: severe Psychotic features: without psychotic features Opioid use disorder F11.90 Tobacco dependence F17.200 History of incarceration Z78.9 Folliculitis L73.9 AMITA (obstructive sleep apnea) G47.33 Primary hypertension I10 Hypertension type: primary hypertension Additional Codes Vital Signs *Quality* - Advance Care Planning discussion: Declined forms ([id number]) Vital Signs *Quality* - CPT code: 29701 - 4-10 Minutes ([id number]) JOSE JUAN-7 Assessment Billing - JOSE JUAN-7 Assessment Tool: JOSE JUAN-7 Assessment 05839 ([id number]) Vital Signs *Quality* - Time spent: 1-15 minutes, not on file ([id number]) Vital Signs *Quality* - Did not discuss due to Cultural/Spiritual beliefs: Yes ([id number])
[2023-05-26 09:22] VITALS: BP 157/90; PULSE 82; RESP 14; TEMP 36.2; O2SAT 98; BMI 33.8
== END 2023-05-26 10:08 | disposition home or self-care (01) ==
PROVIDERS: PCP Nurse Practitioner Family; Visit Provider Nurse Practitioner Family
DX: F41.1 Generalized anxiety disorder (principal); F33.2 Major depressive disorder, recurrent severe without psychotic features; F11.90 Opioid use, unspecified, uncomplicated; F17.210 Nicotine dependence, cigarettes, uncomplicated; Z78.9 Other specified health status; L73.9 Follicular disorder, unspecified; G47.33 Obstructive sleep apnea (adult) (pediatric); I10 Essential (primary) hypertension; Z00.00 Encounter for general adult medical examination without abnormal findings
CPT/HCPCS: 1124F; 99215

== ENCOUNTER 2023-05-26 09:51 | Outpatient (REF) | payer OTHER, MEDICAID, SELFPAY ==
[2023-05-26 11:39] LABS: Appearance Urine Clear; Color Urine Dark Yellow; Glucose Urine UA Negative (Negative); Leukocyte Esterase Urine Negative (Negative); Nitrite Urine Negative (Negative); Urine Blood Negative (Negative); Urine Ketones Negative (Negative); Urine Protein Negative (Neg-Trace)
[2023-05-26 11:43] LABS: Bacteria Urine None Seen (None Seen); Hyaline Casts Urine 0-2 /LPF (0-2); RBC Urine 0-2 /HPF (0-2); Squamous Epithelial Cell Urine 0-2 /HPF (0-2); WBC Urine 0-5 /HPF (0-5)
[2023-05-26 12:04] LABS: Estimated Average Glucose 117 mg/dL; Hemoglobin A1c % 5.7 % (<6.0)
[2023-05-26 12:21] LABS: Alanine Aminotransferase 14 U/L (0-40); Albumin Level 4.7 g/dL (3.5-5.0); Alkaline Phosphatase 79 U/L (39-117); Anion Gap 15 (12-20); Aspartate Amino Transferase 19 U/L (5-37); Bilirubin Total 0.4 mg/dL (0.0-1.0); Blood Urea Nitrogen 8 mg/dL (9-16); Carbon Dioxide 26 mmol/L (22-29); Chloride 101 mmol/L (96-108); Cholesterol 184 mg/dL (<200); Estimated Glomerular Filt Rate > 60; Glucose Fasting 123 mg/dL (60-99); HDL Cholesterol 44 mg/dL (>40); LDL Cholesterol Calculated 130 mg/dL (<100); Potassium 4.1 mmol/L (3.3-5.1); Sodium 138 mmol/L (135-145); Triglycerides 50 mg/dL (<150)
[2023-05-26 12:22] LABS: TSH reflex Free T4 2.04 uIU/mL (0.32-4.0)
[2023-05-26 12:36] LABS: Folate 3.9 ng/mL (> or = 4.0); Vitamin B12 436 pg/mL (200-900)
[2023-05-26 12:38] LABS: Microalbum/Creatinine Ratio Ur 9.1 ug/mg cr (<30)
[2023-05-28 19:34] LABS: TS Negative Control Passed; TS Panel A 0; TS Panel B 0; TS Positive Control Passed; TSpotTB Negative (Negative)
[2023-05-30 18:43] LABS: PSA, Ultra Sensitive 0.24 ng/mL
== END 2023-05-26 09:52 | disposition home or self-care (01) ==
LOC: HO.WFDLDS 09:51
PROVIDERS: Visit Provider Nurse Practitioner Family
DX: G47.33 Obstructive sleep apnea (adult) (pediatric) (principal); F33.9 Major depressive disorder, recurrent, unspecified; F41.1 Generalized anxiety disorder; Z12.5 Encounter for screening for malignant neoplasm of prostate
CPT/HCPCS: 36415; 80053; 80061; 81001; 82043; 82570; 82607; 82746; 83036; 84153; 84443; 86481

== ENCOUNTER 2023-06-05 13:09 | Outpatient (AMB) | payer OTHER, MEDICAID, SELFPAY ==
--- NOTE | 2023-06-05 13:27 | A.OFFPC_ITS ---
Vital Signs 06/05/23 13:28 Height 6 ft 1 in Weight 252 lb 8 oz BMI 33.3 BP 118/74 Blood Pressure Location Lt brachial Position Sitting Pulse 84 Pulse Source Pulse Oximeter Pulse Oximetry (%) 98 Oxygen Delivery Method Room Air Intake Visit Reasons: fu labs Intake Note: Pt presents to the office today for a follow up for lab results. Pt states he is not feeling well and states that he has really bad insomnia. Pt states he has been having issues with sweating and shaking at nighttime. Allergies No Known Allergies [No Known Allergies*] Allergy (Verified 06/05/23 13:44) Medication List - Last Reconciled 06/05/23 by Heather Plata, PATIENT SAFETY SITTER- buprenorphine-naloxone 4-1 mg (Suboxone) 1 film sublingual Q24H buprenorphine-naloxone 8-2 mg 1 film buccal BID escitalopram oxalate 20 mg PO DAILY tizanidine 4 mg PO Q8H PRN trazodone 150 mg PO DAILY Tobacco use date assessed: 06/05/23 Dental Screening Dental Screen Date: 06/05/23 Did you have a dental visit in the last 12 months?: Yes Did you have a dental problem in the last 6 months where you did not have access to dental care?: No Was dental information given to patient?: Patient has dentist HPI HPI Comments History of Present Illness Details 42 y/o M disabled since age 36, current smoker, MDD, Polysubtance Use now on Suboxone, on probation s/p incarceration, lumbar spondylosis s/p L CTS release, bilat hip replacements d/t avascular necrosis Family hx: Health Maintenance: PSA Immunizations Specialists: PSSJacob LING [facility] Pain Mgmt [facility] Addiction Medicine Here today to follow up on labs. Continues to complain of generalized sweating. Complains of insomnia. Sleep study ordered and pending. Reports not taking trazodone anymore as it does not work for him. Continues to smoke tobacco would like T levels looked at, wonders if fatigue is r/t that ? 05/26/23 Fasting glucose 123, hemoglobin A 1c 5.7, elevated LDL 130, normal cholesterol 184, normal HDL 44, low folate 3.9, normal TSH, normal urine PFSH Medical History No pertinent past medical history Surgical History Hx of bilateral hip replacements Family History Mother No problems noted. Father No problems noted. Social History Household Members: Spouse Housing: House 75 years or older and lives alone: No Alcohol intake: never Patient Tobacco Use Status: Current everyday Tobacco user Tobacco use type: Cigarette Cigarette Packs Per Day: 1 Cigarettes Per Day: 20 Years Smoked: 30 e-Cigarette/Vaping Use: Never Used Substance Use Type: Marijuana and Other service: No Current occupational status: retired and disabled Sexual orientation: Straight/Heterosexual Gender identity: Male Cognitive needs: No Hearing needs: No Vision needs: No Questionnaire PHQ-9 Over the last 2 weeks, how often have you been bothered by any of the following problems? 1. Little interest or pleasure in doing things: not at all 2. Feeling down, depressed, or hopeless: not at all 3. Trouble falling or staying asleep, or sleeping too much: not at all 4. Feeling tired or having little energy: not at all 5. Poor appetite or overeating: not at all 6. Feeling bad about yourself - or that you are a failure or have let yourself or your family down: not at all 7. Trouble concentrating on things, such as reading the newspaper or watching television: not at all 8. Moving or speaking so slowly that other people could have noticed. Or the opposite - being so fidgety or restless that you have been moving around a lot more than usual: not at all 9. Thoughts that you would be better off or of hurting yourself in some way: not at all Total score: 0 Depression Screening Interpretation: Negative Depression Screening Done: Yes 62509 - PHQ-9 Billing: Yes Source: Developed by Drs. Vito Jerome, Mirtha Andrade, Donavan Raines and colleagues, with an educational roverto from [employer]. Thrive Questionnaire Date Thrive assessed: 04/27/23 I am a: Patient What is your living situation today?: I have a steady place to live Within the past 12 months, did the food you bought not last and you didn't have the money to get more?: Never true Within the past 12 months, did you worry whether your food would run out before you got money to buy more?: Never true Do you have trouble paying for medicines?: No Do you have trouble getting transportation to medical appointments?: No Do you have trouble paying your heating and electricity bill?: No Do you have trouble taking care of your child, family member or friend?: No Do you have trouble with day-to-day activities such as bathing, preparing meals, shopping, managing finances, etc.?: No Are you currently unemployed and looking for a job?: No Are you interested in more education?: No Please select the resources that you would like help with: None Currently or been in a relationship where the following occur: no concerns reported THRIVE Score: 0 AUDIT C Alcohol Use Questionnaire (AUDIT-C) 1. How often do you have a drink containing alcohol?: Never 3. How often do you have six or more drinks on one occasion?: Never Total Score: 0 Score Reviewed/Action Taken: Yes JOSE JUAN-7 AMB Questionnaire JOSE JUAN-7 Date JOSE JUAN - 7 assessed: 04/27/23 Feeling nervous, anxious, or on edge: 0 = Not at all Not being able to stop or control worryin = Not at all Worrying too much about different things: 0 = Not at all Trouble relaxin = Not at all Being so restless that it is hard to sit still: 0 = Not at all Becoming easily annoyed or irritable: 0 = Not at all Feeling afraid as if something awful might happen: 0 = Not at all Total JOSE JUAN-7 score (0-4 normal; 5-9 mild; 10-14 moderate; 15-21 severe): 0 Source: Developed by Drs. Vito Jerome, Mirtha Andrade, Donavan Raines and colleagues, with an educational roverto from [employer]. JOSE JUAN-7 Assessment Billing JOSE JUAN-7 Assessment Tool: JOSE JUAN-7 Assessment 42510 Physical exam (Primary Care) Vital Signs: Last Vital Signs Pulse 84 06/05/23 13:28 BP 118/74 06/05/23 13:28 Pulse Ox 98 06/05/23 13:28 Oxygen Delivery Method Room Air 06/05/23 13:28 BMI result Body Mass Index 33.3 BMI Assessment/Plan discussion: High BMI High, discussed plan: lifestyle Tobacco/Smoking Status: Tobacco use Status Tobacco use date assessed 06/05/23 06/05/23 13:34 Patient Tobacco Use Status Current everyday Tobacco 06/05/23 13:34 Tobacco use type Cigarette 06/05/23 13:34 e-Cigarette/Vaping Use Never Used 06/05/23 13:34 Are you ready to quit: No Tobacco cessation counseling provided: Yes Items discussed: Other Relapse Prevention: discussed the importance of a supportive environment, discussed extending NRT, discussed negative mood or depression after quitting, weight gain after smoking is common and discussed dietary, exercise and/or lifestyle changes PHQ-9: PHQ-9 Score PHQ-9: Total score 0 06/05/23 13:50 Depression Screening Interpretation: Negative Thrive Assessment: Date of Thrive Assessment Date Thrive assessed 04/27/23 06/05/23 13:34 Currently or been in a relationship where the following occur: no concerns reported Const Other: Alert, oriented pupils pinpoint MMM speaking in full sentences Assessment and Plan Assessment & Plan (1) Hypertension: Comment: BP stable today started on clonidine to help sleep; need to monitor BP Code(s): I10 - Essential (primary) hypertension Qualifiers: Hypertension type: primary hypertension Qualified Code(s): I10 - Essential (primary) hypertension (2) Folate deficiency: Comment: start folic acid 1 mg po QD Recheck labs in 3 months Code(s): E53.8 - Deficiency of other specified B group vitamins (3) Generalized hyperhidrosis: Comment: refer to Derm start clonidine 0.1 mg at HS to see if this helps Code(s): R61 - Generalized hyperhidrosis (4) Hyperlipidemia: Comment: start atorvastatin 40mg QD repeat labs in 3 months smoking cessation encouraged not ready to quit Code(s): E78.5 - Hyperlipidemia, unspecified Qualifiers: Hyperlipidemia type: mixed hyperlipidemia Qualified Code(s): E78.2 - Mixed hyperlipidemia (5) Fatigue: Code(s): R53.83 - Other fatigue Qualifiers: Fatigue type: other Qualified Code(s): R53.83 - Other fatigue Plan: sleep study pending requested T levels to be drawn - ordered today (6) Tobacco dependence: Comment: Current everyday smoker. Cessation encouraged Code(s): F17.200 - Nicotine dependence, unspecified, uncomplicated Plan THIS NOTE IS CONSTRUCTED USING VOICE RECOGNITION SOFTWARE. WHILE EVERY EFFORT HAS BEEN MADE TO ENSURE ACCURACY IN [place], STILL ERRORS MAY HAVE BEEN INCLUDED SOMETIMES, THESE ERRORS MAY AFFECT THE CONTENT OR MEANING OF THE GIVEN SENTENCE . TOTAL TIME SPENT CARING FOR THE PATIENT TODAY WAS 40 MINUTES. THIS INCLUDES TIME SPENT BEFORE THE VISIT REVIEWING THE CHART, TIME SPENT DURING THE VISIT, AND TIME SPENT AFTER THE VISIT ON DOCUMENTATION Orders: Orders Lipid Panel 08/22/23 E53.8 - Deficiency of other specified B group vitamins, E78.5 - Hyperlipidemia, unspecified, I10 - Essential (primary) hypertension Hemoglobin A1c 08/22/23 E53.8 - Deficiency of other specified B group vitamins, E78.5 - Hyperlipidemia, unspecified, I10 - Essential (primary) hypertension Testosterone, Free/Total Today R53.83 - Other fatigue Comprehensive [place]. Panel Fast 08/22/23 E53.8 - Deficiency of other specified B group vitamins, E78.5 - Hyperlipidemia, unspecified, I10 - Essential (primary) hypertension Folate 08/22/23 E53.8 - Deficiency of other specified B group vitamins Medications: New 2 clonidine HCl 0.1 mg PO BEDTIME 30 tabs 0RF atorvastatin 40 mg PO BEDTIME 90 tabs 0RF folic acid 1 mg PO DAILY 90 tabs 0RF Discontinued trazodone Discontinued Reason: Patient no longer taking 150 mg PO DAILY 30 tabs 0RF F43.10 - Post-traumatic stress disorder, unspecified Patient Instructions: RTO IN 3 MONTHS TO REVIEW LABS, FOLATE DEF, HLD, CLONIDINE USE AT HS TO HELP W INSOMNIA Coding Level of Care Code Est Pt Level 5 (93505) Diagnoses Primary hypertension I10 Hypertension type: primary hypertension Folate deficiency E53.8 Generalized hyperhidrosis R61 Mixed hyperlipidemia E78.2 Hyperlipidemia type: mixed hyperlipidemia Other fatigue R53.83 Fatigue type: other Tobacco dependence F17.200 Additional Codes JOSE JUAN-7 Assessment Billing - JOSE JUAN-7 Assessment Tool: JOSE JUAN-7 Assessment 10935 ([id number])
[2023-06-05 13:28] VITALS: BP 118/74; PULSE 84; O2SAT 98; BMI 33.3
== END 2023-06-05 14:03 | disposition home or self-care (01) ==
PROVIDERS: PCP Nurse Practitioner Family; Visit Provider Nurse Practitioner Family
DX: I10 Essential (primary) hypertension (principal); F17.210 Nicotine dependence, cigarettes, uncomplicated; E53.8 Deficiency of other specified B group vitamins; R61 Generalized hyperhidrosis; E78.2 Mixed hyperlipidemia; R53.83 Other fatigue
CPT/HCPCS: 99215

== ENCOUNTER 2023-06-23 10:30 | Outpatient (AMB) | payer OTHER, SELFPAY ==
--- NOTE | 2023-06-23 10:35 | MHC.AM.SUB ---
Intake Vital Signs 06/23/23 10:45 BP 138/86 Blood Pressure Location Lt radial Position Sitting Pulse 74 Pulse Source Pulse Oximeter Pulse Oximetry (%) 98 Oxygen Delivery Method Room Air Intake Visit Reasons: mat visit Intake Note: the patient presentss for a mat visit Seed Sales Manager Required: No Allergies No Known Allergies [No Known Allergies*] Allergy (Verified 06/23/23 10:48) Do you need a note to return to daycare/school/sports/work: No HPI mat visit HPI Details Patient presents for MAT visit Reports he is going to be having nerve ablation done to his back Has been going to [facility] Taking 20mg suboxone daily (8mg BID, and 4mg) Would like to taper off suboxone because he doesn't like how it makes him feel He feels it does not help for pain anymore PFSH Medical History No pertinent past medical history Surgical History Hx of bilateral hip replacements Family History Mother No problems noted. Father No problems noted. Social History Household Members: Spouse Housing: House 75 years or older and lives alone: No Alcohol intake: never Patient Tobacco Use Status: Current everyday Tobacco user Tobacco use type: Cigarette Cigarette Packs Per Day: 1 Cigarettes Per Day: 20 Years Smoked: 30 e-Cigarette/Vaping Use: Never Used Substance Use Type: Marijuana and Other service: No Current occupational status: retired and disabled Sexual orientation: Straight/Heterosexual Gender identity: Male Cognitive needs: No Hearing needs: No Vision needs: No Review of Systems Const Reports as per HPI Physical Exam Vital Signs: Last Vital Signs Pulse 74 06/23/23 10:45 BP 138/86 06/23/23 10:45 Pulse Ox 98 06/23/23 10:45 Oxygen Delivery Method Room Air 06/23/23 10:45 Const General: cooperative and no acute distress Psych Appearance: grossly normal Mental Status: mental status grossly normal Speech and movement: Normal speech and movement present Affect: normal affect Attitude: cooperative Assessment & Plan Assessment & Plan (1) Opioid use disorder: Code(s): F11.90 - Opioid use, unspecified, uncomplicated Plan: -Discussed with patient trialing injection to begin taper, Sublocade ordered, med education provided -Follow up 2 weeks Medications: New buprenorphine ER (Sublocade) 300 mg (1.5 mL) subcut ONCE 1.5 mL 1RF Refilled buprenorphine-naloxone 8-2 mg 1 film buccal BID 28 ea 0RF buprenorphine-naloxone 4-1 mg (Suboxone) take daily at 2pm (in addition to 8mg BID) 1 film sublingual Q24H 14 ea 0RF Coding Level of Care Code Est Pt Level 3 (73561) Diagnoses Opioid use disorder F11.90
[2023-06-23 10:45] VITALS: BP 138/86; PULSE 74; O2SAT 98
== END 2023-06-23 11:09 | disposition home or self-care (01) ==
PROVIDERS: PCP Nurse Practitioner Family; Visit Provider Nurse Practitioner Family
DX: F11.90 Opioid use, unspecified, uncomplicated (principal)
CPT/HCPCS: 99213

== ENCOUNTER → 2023-06-23 10:30 | Outpatient (BNVA) | payer OTHER, SELFPAY | PROVIDERS: PCP Nurse Practitioner Family; Visit Provider Nurse Practitioner Family | DX: F11.20 Opioid dependence, uncomplicated (principal) | CPT/HCPCS: 99212 ==

== ENCOUNTER 2023-07-07 | Outpatient (REF) | payer OTHER, MEDICAID, SELFPAY | END 2023-07-07 00:01 | disposition home or self-care (01) | LOC: CF | PROVIDERS: PCP Nurse Practitioner Family; Visit Provider Nurse Practitioner Family | DX: F11.20 Opioid dependence, uncomplicated (principal); Z79.899 Other long term (current) drug therapy | CPT/HCPCS: 96372; 99212; Q9992 ==

== ENCOUNTER 2023-07-07 10:02 | Outpatient (AMB) | payer OTHER, SELFPAY ==
--- NOTE | 2023-07-07 10:03 | A.OFFVISCC_ITS ---
Intake Vital Signs 07/07/23 10:06 BP 158/92 H Blood Pressure Location Rt brachial Position Sitting Pulse 90 Pulse Source Pulse Oximeter Pulse Oximetry (%) 97 Oxygen Delivery Method Room Air Intake Visit Reasons: MAT Visit/Sub Inj Allergies No Known Allergies [No Known Allergies*] Allergy (Verified 07/07/23 10:07) HPI MAT Visit/Sub Inj HPI Details Patient presents for his first sublocade injection Reports last week he tried to go off suboxone and escitalopram on his own Reports that made his mood labile and he felt extreme irritability States he resumed meds due to this Has no questions or concerns related to recovery at this time He would like to try to taper his suboxone HPI Comments History of Present Illness Details Patient presents for MAT visit [facility] Medical History No pertinent past medical history Surgical History Hx of bilateral hip replacements Family History Mother No problems noted. Father No problems noted. Social History Household Members: Spouse Housing: House 75 years or older and lives alone: No Alcohol intake: never Patient Tobacco Use Status: Current everyday Tobacco user Tobacco use type: Cigarette Cigarette Packs Per Day: 1 Cigarettes Per Day: 20 Years Smoked: 30 e-Cigarette/Vaping Use: Never Used Substance Use Type: Marijuana and Other service: No Current occupational status: retired and disabled Sexual orientation: Straight/Heterosexual Gender identity: Male Cognitive needs: No Hearing needs: No Vision needs: No Review of Systems Const Reports as per HPI Physical Exam Vital Signs: Last Vital Signs Pulse 90 07/07/23 10:06 BP 158/92 H 07/07/23 10:06 Pulse Ox 97 07/07/23 10:06 Oxygen Delivery Method Room Air 07/07/23 10:06 Const General: cooperative and no acute distress Resp Effort & Inspection: normal respiratory effort and able to speak in complete sentences Psych Appearance: grossly normal Mental Status: mental status grossly normal Speech and movement: Normal speech and movement present Affect: normal affect Attitude: cooperative Thought process: Normal thought process present Office Meds Sublocade 300 mg/1.5 mL solution,extended release subcutaneous syringe Performing Provider: Bouchra Ruiz NP Performing Location: [facility] Administered by: Taylor Ludwig RN on 07/07/23 11:06 Dose Route Admin Location Dispensed Lot Number Expiration Date [facility] Laundry Machine Mechanic 300 mg subcut LLQ 1.5 mL [id number] 05/21/24 [address]-0 [id number]. Comments: Patient tolerated injection well with no stated or noted complications. Agrees to call [facility] with any questions or concerns. Assessment & Plan Assessment & Plan (1) Opioid dependence: Code(s): F11.20 - Opioid dependence, uncomplicated Qualifiers: Substance use status: uncomplicated Qualified Code(s): F11.20 - Opioid dependence, uncomplicated Plan: -Educated patient on importance of reaching out to medical providers before suddenly discontinueing medication -Reviewed med education r/t sublocade with patient -Follow up 5 weeks Orders: Orders AMB Buprenorphine Injection - Patient Supplied Today F11.90 - Opioid use, unspecified, uncomplicated Medications: New Sublocade ER (buprenorphine) 300 mg (1.5 mL) subcut ONCE 1.5 mL 0RF NS F11.90 - Opioid use, unspecified, uncomplicated Coding Level of Care Code Est Pt Level 3 (85966) Diagnoses Uncomplicated opioid dependence F11.20 Substance use status: uncomplicated
[2023-07-07 10:06] VITALS: BP 158/92; PULSE 90; O2SAT 97
== END 2023-07-07 10:44 | disposition home or self-care (01) ==
PROVIDERS: PCP Nurse Practitioner Family; Visit Provider Nurse Practitioner Family
DX: F11.90 Opioid use, unspecified, uncomplicated (principal); F11.20 Opioid dependence, uncomplicated
CPT/HCPCS: 99213

== ENCOUNTER → 2023-08-05 14:56 | Outpatient (REF) | payer MEDICARE, MEDICAID, SELFPAY | LOC: HO.SL 14:56 | PROVIDERS: PCP Nurse Practitioner Family; Visit Provider Nurse Practitioner Family | DX: G47.33 Obstructive sleep apnea (adult) (pediatric) (principal); F33.9 Major depressive disorder, recurrent, unspecified; F41.1 Generalized anxiety disorder | CPT/HCPCS: 95806 ==

== ENCOUNTER → 2023-08-05 15:08 | Outpatient (BNV) | payer MEDICARE, MEDICAID, SELFPAY | PROVIDERS: PCP Nurse Practitioner Family; Visit Provider Internal Medicine | DX: G47.33 Obstructive sleep apnea (adult) (pediatric) (principal) | CPT/HCPCS: 95806 ==

== ENCOUNTER 2023-08-11 10:38 | Outpatient (AMB) | payer MEDICARE, MEDICAID, SELFPAY ==
--- NOTE | 2023-08-11 10:42 | AM.OFFVISNUR ---
Intake Vital Signs 08/11/23 10:43 BP 158/90 H Blood Pressure Location Rt brachial Position Sitting Pulse 101 H Pulse Source Pulse Oximeter Pulse Oximetry (%) 98 Oxygen Delivery Method Room Air Intake Visit Reasons: Sub Inj Allergies No Known Allergies [No Known Allergies*] Allergy (Verified 08/11/23 10:44) Nursing Note Patient in clinic for injection today, he states this is his second injection I had no change in feeling since the last. Patient is alert and oriented x4, denies any breakthrough cravings, states he is doing well in recovery. Will see myself for injection in 4 weeks and provider as well for check in regarding dosing. Office Meds Sublocade 300 mg/1.5 mL solution,extended release subcutaneous syringe Performing Provider: Bouchra Ruiz NP Performing Location: [facility] Administered by: Taylor Ludwig RN on 08/11/23 10:43 Dose Route Admin Location Dispensed Lot Number Expiration Date [facility] Electronic Engraver 300 mg subcut 1.5 mL [id number] 08/21/04 [address]-5 [employer]. Coding Assessment & Plan Assessment & Plan Orders: Orders AMB Buprenorphine Injection - Patient Supplied Today F11.90 - Opioid use, unspecified, uncomplicated
[2023-08-11 10:43] VITALS: BP 158/90; PULSE 101; O2SAT 98
== END 2023-08-11 10:55 | disposition home or self-care (01) ==
PROVIDERS: PCP Nurse Practitioner Family
DX: F11.90 Opioid use, unspecified, uncomplicated (principal)

== ENCOUNTER → 2023-08-11 10:38 | Outpatient (BNVA) | payer MEDICARE, MEDICAID, SELFPAY | PROVIDERS: PCP Nurse Practitioner Family | DX: F11.90 Opioid use, unspecified, uncomplicated (principal); Z79.899 Other long term (current) drug therapy | CPT/HCPCS: 96372; Q9992 ==

== ENCOUNTER 2023-12-16 10:20 | Outpatient (AMB) | payer MEDICARE, MEDICAID, SELFPAY ==
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
[2023-12-16 10:32] VITALS: BP 160/88; PULSE 89; RESP 14; O2SAT 96; BMI 37.2
== END 2023-12-16 11:09 | disposition home or self-care (01) ==
PROVIDERS: PCP Nurse Practitioner Family; Visit Provider Anesthesiology
DX: M54.51 Vertebrogenic low back pain (principal); M51.36 Other intervertebral disc degeneration, lumbar region; M46.1 Sacroiliitis, not elsewhere classified; M53.3 Sacrococcygeal disorders, not elsewhere classified
CPT/HCPCS: 99215

== ENCOUNTER → 2023-12-16 10:20 | Outpatient (BNVA) | payer MEDICARE, MEDICAID, SELFPAY | PROVIDERS: PCP Nurse Practitioner Family; Visit Provider Anesthesiology | DX: M54.51 Vertebrogenic low back pain (principal); M51.36 Other intervertebral disc degeneration, lumbar region; M46.1 Sacroiliitis, not elsewhere classified; M53.3 Sacrococcygeal disorders, not elsewhere classified | CPT/HCPCS: 99212 ==

== ENCOUNTER 2024-02-02 06:16 | Outpatient (REF) | payer MEDICARE, MEDICAID, SELFPAY | END 2024-02-02 06:17 | disposition home or self-care (01) | LOC: CF 06:16 | PROVIDERS: Visit Provider Anesthesiology | DX: M54.51 Vertebrogenic low back pain (principal); M53.3 Sacrococcygeal disorders, not elsewhere classified; M46.1 Sacroiliitis, not elsewhere classified | CPT/HCPCS: 27096; J2003; J2795; Q9967 ==

== ENCOUNTER 2024-02-02 09:40 | Outpatient (AMB) | payer MEDICARE, MEDICAID, SELFPAY ==
--- NOTE | 2024-02-02 09:45 | MHC.OFFVIS ---
Vital Signs 02/02/24 10:35 02/02/24 10:35 02/02/24 10:36 Height 6 ft 1 in 6 ft 1 in Weight 282 lb 282 lb BMI 37.2 37.2 BP 168/80 H 178/83 H 166/76 H Blood Pressure Location Lt brachial Lt brachial Lt brachial Position Sitting Sitting Sitting Respiration 17 17 Pulse 85 84 Pulse Source Pulse Oximeter Pulse Oximeter Pulse Oximetry (%) 97 96 Oxygen Delivery Method Room Air Room Air Comment pre-op post-op Intake Visit Reasons: BILATERAL DIAGNOSTIC SIJ INJECTIONS Allergies No Known Allergies [No Known Allergies*] Allergy (Verified 02/02/24 10:37) PFSH Medical History No pertinent past medical history Surgical History Hx of bilateral hip replacements Family History Mother No problems noted. Father No problems noted. Social History Household Members: Spouse Housing: House 75 years or older and lives alone: No Alcohol intake: never Patient Tobacco Use Status: Current everyday Tobacco user Tobacco use type: Cigarette Cigarette Packs Per Day: 1 Cigarettes Per Day: 20 Years Smoked: 30 e-Cigarette/Vaping Use: Never Used Substance Use Type: Marijuana and Other service: No Current occupational status: retired and disabled Sexual orientation: Straight/Heterosexual Gender identity: Male Cognitive needs: No Hearing needs: No Vision needs: No Physical Exam Vital Signs: Last Vital Signs Pulse 84 02/02/24 10:35 Resp 17 02/02/24 10:35 BP 166/76 H 02/02/24 10:36 Pulse Ox 96 02/02/24 10:35 Oxygen Delivery Method Room Air 02/02/24 10:35 BMI result Body Mass Index 37.2 Assessment & Plan Assessment & Plan (1) Vertebrogenic low back pain: Code(s): M54.51 - Vertebrogenic low back pain Category: Medical (2) Lumbar degenerative disc disease: Code(s): M51.36 - Other intervertebral disc degeneration, lumbar region Category: Medical (3) Sacroiliitis: Code(s): M46.1 - Sacroiliitis, not elsewhere classified Category: Medical (4) Sacroiliac joint dysfunction of both sides: Code(s): M53.3 - Sacrococcygeal disorders, not elsewhere classified Category: Medical Plan: Bilateral diagnostic sacroiliac joint injection Informed consent was explained thoroughly to the patient.? All questions about benefits and risks for the procedure were answered. Patient came to the operating room and was positioned prone on the operating table with the pillow under the abdomen. The lower back and buttocks of the patient were prepped with ChloraPrep prepped and draped with sterile utility towels.? Sterilely draped C-arm was brought over the operating field and sq picture of patient's pelvis was demonstrated on the screen.? For the right joint tilting C-arm contralateral to the site of the joint the most posterior portion of the joints was superimposed with anterior silhouette of the joint.? Skin was injected in the projection of the joint slightly medial to the location of the joint with 25 gauge 1/2 inch needle using local lidocaine 2% . After that 22 gauge 3 and 1/2 inch needle was driven to the right joint in tunnel vision fashion.? When needle entered the joint capsule injection of the contrast was performed demonstrating intra-articular and minimally periarticular spread of the contrast.? After that 5 cc. of ropivacaine 0.5% was injected in the joint. After that procedure was repeated on the left side in mirroring fashion. Same dose of ropivacaine was injected into the joint. Upon completion of the injections the needle was removed and Band-Aid was applied.? Upon completion of the injection patient was taken outside of the operating room to the recovery room where recovered uneventfully. Plan This patient is 42 years old gentleman who presents in my office with to similarly concurrent problems. It is hard to decide which 1 of them is his pain generators. He has very prominent changes of Modic type 2 at L3, L4 and L5 vertebras and therefore needs intercept procedure. However on physical exam he also has some sacroiliac joint features and I decided to schedule him for diagnostic sacroiliac joint injection while we are waiting for pre authorization for intercept. This patient was asking me to start him on opioid medications. He is opioid use disorder patient. He admits himself in the past taking more than prescribed opioid pills. Therefore he will be poor candidate for chronic opioid program. Meanwhile he tried OTC NSAIDs with not very good results. I told him that I will prescribe him indomethacin 50 mg 4 times a day to see if this will help his pain. I also carefully explained to him that he can not take other NSAID medications with indomethacin including aspirin. I also told him to take in the medicine with food. Orders: Orders FL guidance in treatment room Today M53.3 - Sacrococcygeal disorders, not elsewhere classified Coding Level of Care Code Procedure Only Diagnoses Vertebrogenic low back pain M54.51 Lumbar degenerative disc disease M51.36 Sacroiliitis M46.1 Sacroiliac joint dysfunction of both sides M53.3
[2024-02-02 10:35] VITALS: BP 168/80; BP 178/83; PULSE 84; PULSE 85; RESP 17; O2SAT 96; O2SAT 97; BMI 37.2
[2024-02-02 10:36] VITALS: BP 166/76
== END 2024-02-02 10:27 | disposition home or self-care (01) ==
LOC: HO.PMCPRC 09:41
PROVIDERS: PCP Nurse Practitioner Family; Visit Provider Anesthesiology
DX: M46.1 Sacroiliitis, not elsewhere classified (principal); M53.3 Sacrococcygeal disorders, not elsewhere classified
CPT/HCPCS: 27096

== ENCOUNTER 2024-02-08 13:47 | Outpatient (AMB) | payer MEDICARE, MEDICAID, SELFPAY ==
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
[2024-02-08 14:09] VITALS: BP 142/68; PULSE 84; RESP 16; O2SAT 96; BMI 36.4
== END 2024-02-08 14:12 | disposition home or self-care (01) ==
PROVIDERS: PCP Nurse Practitioner Family; Visit Provider Anesthesiology
DX: M54.51 Vertebrogenic low back pain (principal); M51.369 Other intervertebral disc degeneration, lumbar region without mention of lumbar back pain or lower extremity pain; M46.1 Sacroiliitis, not elsewhere classified; M53.3 Sacrococcygeal disorders, not elsewhere classified
CPT/HCPCS: 99213

== ENCOUNTER → 2024-02-08 13:47 | Outpatient (BNVA) | payer MEDICARE, MEDICAID, SELFPAY | PROVIDERS: PCP Nurse Practitioner Family; Visit Provider Anesthesiology | DX: M53.3 Sacrococcygeal disorders, not elsewhere classified (principal); M46.1 Sacroiliitis, not elsewhere classified; M51.369 Other intervertebral disc degeneration, lumbar region without mention of lumbar back pain or lower extremity pain; M54.51 Vertebrogenic low back pain | CPT/HCPCS: 99212 ==